=== PATIENT | male | born 1970 | race Caucasian/White ===

== ENCOUNTER 2017-08-06 14:44 | Emergency (ER) | payer OTHER ==
[~2017-08-06] VITALS: Ht 170.2 cm; Wt 94.0 kg
[~2017-08-06 14:44] MED LIST: ATORVASTATIN; GLIPIZIDE; LISINOPRIL; METFORMIN; PANTOPRAZOLE
[2017-08-06 14:51] VITALS: Ht 170.2 cm; Wt 94.0 kg
[2017-08-06] MEDS ORDERED: IBUPROFEN 600 MG TAB PO ONE (16:00)
[2017-08-06] MEDS ORDERED: HYDROCODONE/APAP (5/325) TAB PO ONE (16:00)
--- NOTE | 2017-08-06 16:00 | ERD ---
ER Documentation Chief Complaint Date/Time DATE: 08/06/17 TIME: 15:58 Chief Complaint RT SIDE BACK PAIN RADIATING DOWN LEG X3 DAYS, DENIES INJURY HPI 47-year-old male presents emergency department with right-sided lower back pain radiating down his leg for the past 3 days after moving plants in the backyard. He describes as sharp pain, moderate, involving the right lower extremity as well. He denies paresthesias, saddle anesthesia loss of bowel bladder function. ROS All systems reviewed and are negative except as per history of present illness. Medications Home Meds Reported Medications [Glipizide] No Conflict Check 05/04/16 [Metformin] No Conflict Check 05/04/16 [Atorvastatom] No Conflict Check 05/04/16 [Lisinopril] No Conflict Check 05/04/16 [Pantoprazole] No Conflict Check 05/04/16 Allergies Allergies: Coded Allergies: No Known Allergy (Unverified , 05/04/16) PMhx/Soc History of Surgery: Yes (RIGHT SHOULDER SX) Anesthesia Reaction: No Hx Neurological Disorder: No Hx Respiratory Disorders: No Hx Cardiac Disorders: Yes (HTN, HYPERLIPIDEMIA) Hx Psychiatric Problems: No Hx Miscellaneous Medical Probl: No Hx Alcohol Use: No Hx Substance Use: No Hx Tobacco Use: No Physical Exam Vitals Vital Signs Date Time Temp Pulse Resp B/P Pulse Ox O2 Delivery O2 Flow Rate FiO2 08/06/17 14:51 98.4 85 20 135/79 98 Physical Exam General: Well-developed, well-nourished. The patient appears in no acute distress. HEENT: Head is normocephalic, atraumatic. No scleral icterus. Neck: Supple. Nontender. Lungs: Clear to auscultation. Normal air movement. Heart: Regular rate and rhythm. S1 and S2 are normal. No murmurs, gallops, or rubs. Abdomen: Soft, nontender, nondistended. Bowel sounds are normoactive. Back: right low back pain in the lumbosacral region, no rashes, strength to LE 5 /5 bilaterally Extremities: No clubbing or cyanosis. Normal pulses. Moving extremities x 4. No weakness. Neurologic: Alert and oriented 3. No focal deficits. Skin: Normal turgor. No rash or lesions. Procedures/MDM ED course: Patient was given [place] and ibuprofen for pain. Medical decision makin-year-old male comes in with low back pain, consistent with a lumbosacral strain, paresthesias. Patient does not show any signs of neurovascular injury, cauda equina. He was given [place] and ibuprofen, was advised to do stretches at home, can continue pain meds. If he has any worsening symptoms he is to return to the emergency department. Departure Diagnosis: Primary Impression: Back pain Condition: Good JAXON DOOLEY PA-C Aug 06, 2017 16:00
[2017-08-06] MEDS ORDERED: HYDR-906 PO (16:01)
[2017-08-06] MEDS ORDERED: IBUP-1542 PO (16:01)
[2017-08-06 17:14] VITALS: BP 138/70; PULSE 70; RESP 20; TEMP 98.4
== END 2017-08-06 17:16 | disposition home or self-care (01) ==
LOC: FTE 14:44
DX: M54.5 Low back pain (principal); I10 Essential (primary) hypertension
CPT/HCPCS: 99283

== ENCOUNTER 2018-10-01 18:19 | Emergency (ER) | END 2018-10-02 01:45 | disposition home or self-care (01) ==